=== PATIENT | male | born 1995 | race African-American/Black ===

== ENCOUNTER 2018-12-03 18:14 | Emergency (ER) | payer OTHER ==
[~2018-12-03] VITALS: Ht 177.8 cm; Wt 62.6 kg
[2018-12-03 18:59] LABS: URINE BILIRUBIN NEGATIVE (Negative); URINE BLOOD TRACE (Negative); URINE CLARITY CLEAR; URINE COLOR YELLOW; URINE GLUCOSE-RANDOM* NEGATIVE (Negative); URINE KETONES TRACE (Negative); URINE LEUKOCYTES-REFLEX NEGATIVE (Negative); URINE NITRITE-REFLEX NEGATIVE (Negative); URINE PROTEIN (DIPSTICK) NEGATIVE (Negative); URINE SPECIFIC GRAVITY 1.025 (1.005-1.035)
[2018-12-03] MEDS ORDERED: MOBIC7.5 MG PO (19:15)
[2018-12-03] MEDS ORDERED: FLOMAX0.4 MG PO (20:15)
[2018-12-03] MEDS ORDERED: NORCO 5-325 TA1 EACH PO (20:15)
[2018-12-03 20:44] VITALS: BP 101/60
== END 2018-12-03 20:44 | disposition home or self-care (01) ==
LOC: ER 18:14
PROVIDERS: Nurse Practitioner Family
DX: N20.0 Calculus of kidney (principal); Z88.0 Allergy status to penicillin; Z88.1 Allergy status to other antibiotic agents

== ENCOUNTER 2019-01-11 21:43 | Emergency (ER) | payer OTHER ==
[~2019-01-11] VITALS: Ht 177.8 cm; Wt 62.1 kg
[~2019-01-11 21:43] MED LIST: BENTYL 20 MG TA20 M1 PO; FLOMAX0.4 MG PO; MOBIC7.5 MG PO; NORCO 5-325 TA1 EACH PO
[2019-01-11 22:06] LABS: URINE BILIRUBIN NEGATIVE (Negative); URINE BLOOD TRACE (Negative); URINE CLARITY CLEAR; URINE COLOR YELLOW; URINE GLUCOSE-RANDOM* NEGATIVE (Negative); URINE KETONES NEGATIVE (Negative); URINE LEUKOCYTES NEGATIVE (Negative); URINE NITRITE NEGATIVE (Negative); URINE PROTEIN (DIPSTICK) NEGATIVE (Negative); URINE UROBILINOGEN 0.2 E.U./dl (0.2-1.0)
[2019-01-11 22:16] LABS: ABSOLUTE NEUTROPHILS 3.6 thou/uL (1.4-8.2); BASOPHILS 0.9 % (0.0-2.0); EOSINOPHILS 1.4 % (0.0-3.0); HEMATOCRIT 40.3 % (42.0-52.0); HEMOGLOBIN 13.6 gm/dL (14.0-18.0); LYMPHOCYTES 21.9 % (24.0-44.0); MCH 27.6 pg (26.0-34.0); MCHC 33.8 g/dL (28.0-37.0); MCV 81.8 fL (80.0-100.0); MONOCYTES 9.6 % (1.0-8.0); PLATELET COUNT 212 thou/uL (150-400); POLYS 66.2 % (36.0-66.0); RBC 4.93 mil/uL (4.50-6.00); RDW 14.2 % (10.5-14.5); WBC 5.4 thou/uL (4.0-11.0)
[2019-01-11 22:23] LABS: CALCIUM 9.2 mg/dL (8.5-10.1); CREATININE 1.1 mg/dL (0.7-1.3); POTASSIUM 3.9 mmol/L (3.5-5.1)
[2019-01-11 22:30] LABS: ALBUMIN 4.3 g/dL (3.4-5.0); TOTAL BILIRUBIN 0.9 mg/dL (<0.1-1.0); TOTAL PROTEIN 7.3 g/dL (6.4-8.2)
[2019-01-12 01:05] VITALS: BP 110/59
== END 2019-01-12 01:07 | disposition home or self-care (01) ==
LOC: ER 21:43
PROVIDERS: Emergency Medicine
DX: R10.31 Right lower quadrant pain (principal); Z88.1 Allergy status to other antibiotic agents